=== PATIENT | female | born 1955 | race Caucasian/White ===

== ENCOUNTER 2016-08-06 12:00 | Day surgery (SDC) | payer OTHER ==
[~2016-08-06] VITALS: Ht 175.3 cm; Wt 56.7 kg
[~2016-08-06 12:00] MED LIST: BISOPROLOL FUMAR5 MG PO; CALCIUM500 MG PO; FOSAMAX70 MG PO
--- NOTE | 2016-08-06 14:29 | NUR ---
08/06/16 1429 Mya Carnes 1425-PATIENT ARRIVED TO PACU ON 2L NC O2 SAT 100%. PATIENT NONAROUSABLE LAYING ON LEFT SIDE.
--- NOTE | 2016-09-14 10:25 | OR ---
[facility] [address], [place] [address] Signed DATE OF PROCEDURE: 08/14/16 PREOPERATIVE DIAGNOSES Surveillance colonoscopy. Last colonoscopy 10 years ago. Previously negative. Cardiac history with significant mitral valve prolapse and moderate left ventricular dysfunction. POSTOPERATIVE DIAGNOSES Small polyp of cecum (excised). Sigmoid diverticulosis. PROCEDURE Total colonoscopy to cecum with cold morcellat ion polypectomy x1. SURGEON: Sheri Burgos MD. ANESTHESIA: Intravenous sedation (Propofol infusion, Jeremy Rao CRNA). INDICATION This 61-year-old woman is a patient of Dr. Katz and is here for surveillance colonoscopy. She last underwent colonoscopy approximately 10 years ago outside of [place], [place]. She has had no problems with colonoscopy in the past. She has no family history of colon cancer and no symptoms currently. She does have a cardiac history of mitral valve prolapse, which has shown on echo cardiogram moderate left ventricular dysfunction. She is admitted to undergo colonoscopy for surveillance/screening mindful of her cardiac issue. She understands the risks of this procedure including, but not limited to, bleeding, infection, and perforation. FINDINGS The prep was excellent. Complete colonoscopy was undertaken to the cecum. There was a small polyp of the cecum and several diverticula of the sigmoid. The polyp was excised. There were no other findings of concern. PROCEDURE IN DETAIL The patient was brought to the endoscopy suite, placed in lateral decubitus position, given intravenous sedation by the director medical surgical with Propofol infusional technique. Full cardiopulmonary monitoring was undertaken. Digital rectal examination was found to be normal. An Olympus video colonoscope was passed in the rectum and manipulated throughout the colon, ultimately intubating the cecum itself. A small polyp was noted there. It was excised with cold morcellation technique. The scope was then withdrawn and examination Electronically Signed By: SHERI BURGOS MD 09/14/16 1025 PATIENT NAME: ASA LORA OPERATIVE REPORT DATE OF : 57 PHYSICIAN: SHERI BURGOS MD REPORT #: [id number] REPORT IS CONFIDENTIAL AND NOT TO BE RELEASED WITHOUT AUTHORIZATION [facility] [address], [place] [address] Signed throughout showed no sign of abnormality until the sigmoid where diverticular changes were noted. Retroflex view in the rectum was normal. The scope was removed. The patient was taken recovery room in good condition. CONCLUDING DIAGNOSES Small polyp of cecum (excised). Diverticular changes of sigmoid. PLAN Recommend high-fiber diet. Repeat colonoscopy in 3 years depending on pathology report. If adenoma is noted 3 years would be appropriate; if fibroblastic likely longer. She will return to the ongoing care of Dr. Katz. MD GENE Flores/Jacqui /[id number] cc: Perry Katz Electronically Signed By: SHERI BURGOS MD 09/14/16 1025 PATIENT NAME: ASA LORA OPERATIVE REPORT DATE OF : 57 PHYSICIAN: SHERI BURGOS MD REPORT #: [id number] REPORT IS CONFIDENTIAL AND NOT TO BE RELEASED WITHOUT AUTHORIZATION
== END 2016-08-06 15:12 | disposition home or self-care (01) ==
LOC: DS 12:00 → OPS 12:00 → DS 13:00 → OPS 13:00
PROVIDERS: Surgery
PROC: 0DBH8ZX Excision of Cecum, Via Natural or Artificial Opening Endoscopic, Diagnostic (ICD-10-PCS; principal; 2016-08-06 13:00)
DX: Z12.11 Encounter for screening for malignant neoplasm of colon (principal); D12.0 Benign neoplasm of cecum; K57.30 Diverticulosis of large intestine without perforation or abscess without bleeding; I49.9 Cardiac arrhythmia, unspecified; Z87.442 Personal history of urinary calculi; Z98.890 Other specified postprocedural states; Z79.2 Long term (current) use of antibiotics; Z79.899 Other long term (current) drug therapy
CPT/HCPCS: 00810; J1644; J2250; J2704; J3010; J7120

== ENCOUNTER 2020-09-29 06:20 | Day surgery (SDC) | payer BC ==
[~2020-09-29] VITALS: Ht 175.3 cm; Wt 57.6 kg
[2020-09-29] MEDS ORDERED: PROLIA60 MG/1 ML SUB-Q (06:39)
--- NOTE | 2020-09-29 08:16 | NUR ---
09/29/20 0816 Jovana Mayes 0812 PATIENT ARRIVES TO PACU AWAKE OFF/ON, BUT VERY DROWSY. RESP EVEN AND UNLABORED. OXYGEN TURNED OFF ON ARRIVAL TO PACU. PATIENT RESTING WITH EYES CLOSED.
--- NOTE | 2020-10-04 13:17 | OR ---
[facility] [address], [place] [address] Signed DATE OF OPERATION: 09/29/2020 SURGEON: Sheri Burgos MD PREOPERATIVE DIAGNOSIS: History of tubular adenoma, 2017. POSTOPERATIVE DIAGNOSES: 1. No evidence of polyps. 2. Diverticulosis sigmoid and left colon. PROCEDURE: Total colonoscopy to cecum. ANESTHESIA: Intravenous sedation, fentanyl 150 mcg and Versed 5 mg. INDICATION: This 65-year-old white woman is a patient of Dr. Katz and underwent colonoscopy by me in 2016 at which time she was found to have a tubular adenoma. She is currently symptom free having no bleeding, diarrhea or constipation. She has no family history of colon cancer. She is admitted at this time to undergo surveillance colonoscopy, she understand the risks of bleeding, infection, and perforation. FINDINGS: The prep was excellent. Complete colonoscopy was undertaken to the cecum without question. She had numerous diverticula of the sigmoid and left colon, but no evidence of recurrent or new polyp. PROCEDURE NOTE: The patient was brought to the endoscopy suite and placed in lateral decubitus position, given intravenous sedation to the point of slurred speech and nystagmus. Full cardiopulmonary monitoring was maintained. Digital rectal examination was normal. An Olympus video colonoscope was passed in the rectum and manipulated throughout the colon ultimately intubating the cecum itself. The ileocecal valve and appendiceal orifice were identified as normal. The scope was carefully withdrawn from that point and examination throughout showed no sign of abnormality into the left colon where there were diverticula more so in the sigmoid. The rectum was normal. Scope was removed and the patient was taken to the recovery room in good condition. Electronically Signed By: SHERI BURGOS MD 10/04/20 1317 PATIENT NAME: ASA LORA OPERATIVE REPORT DATE OF : 57 REPORT #: [id number] PHYSICIAN: SHERI BURGOS MD PCP: SAMEER MARQUEZ MD REPORT IS CONFIDENTIAL AND NOT TO BE RELEASED WITHOUT AUTHORIZATION [facility] [address], [place] [address] Signed CONCLUDING DIAGNOSIS: Diverticulosis, no evidence of polyps. PLAN: Recommend a repeat colonoscopy in 10 years sooner if clinically indicated. Recommend a high-fiber diet. MD GENE Flores/MODL /[id number] cc: Pita Katz MD Copies: PITA KATZ MD ~ Electronically Signed By: SHERI BURGOS MD 10/04/20 1317 PATIENT NAME: ASA LORAN OPERATIVE REPORT DATE OF : 57 REPORT #: [id number] PHYSICIAN: SHERI BURGOS MD PCP: SAMEER MARQUEZ MD REPORT IS CONFIDENTIAL AND NOT TO BE RELEASED WITHOUT AUTHORIZATION
== END 2020-09-29 08:50 | disposition home or self-care (01) ==
LOC: DS 06:20 → OPS 06:20
PROVIDERS: ATTEND Surgery
PROC: 0DJD8ZZ Inspection of Lower Intestinal Tract, Via Natural or Artificial Opening Endoscopic (ICD-10-PCS; principal; 2020-09-29 06:45)
DX: Z12.11 Encounter for screening for malignant neoplasm of colon (principal); K57.30 Diverticulosis of large intestine without perforation or abscess without bleeding; Z87.19 Personal history of other diseases of the digestive system
CPT/HCPCS: 99153; G0500; J7121